=== PATIENT | female | born 1945 | race Asian ===

== ENCOUNTER 2020-10-13 15:45 | Emergency (ER) | payer OTHER ==
[~2020-10-13] VITALS: Ht 160 cm; Wt 47.6 kg
[2020-10-13 15:56] VITALS: Ht 160 cm; Wt 47.6 kg
[2020-10-13 20:13] LABS: UA SPECIFIC GRAVITY 1.015 (1.005-1.035); microscopic required? YES; urine erythrocyte 3+ (NEGATIVE)
[2020-10-13 20:31] LABS: BASOPHIL % 0.3 % (0-2); PLATELET COUNT 161 x10^3mcL (130-400); RED CELL DISTRIBUTION WIDTH 12.8 % (11.5-14.5)
[2020-10-13 20:45] LABS: CALCIUM 8.2 mg/dL (8.5-10.1); CARBON DIOXIDE 24.2 mmol/L (21-32); CHLORIDE SERUM 98 mmol/L (98-107); GLUCOSE SERUM 179 mg/dL (74-106); POTASSIUM SERUM 3.9 mmol/L (3.5-5.1); SODIUM SERUM 130 mmol/L (136-145)
[2020-10-13 20:50] LABS: ALKALINE PHOSPHATASE 122 U/L (46-116); ALT/SGPT 41 U/L (14-59); AST/SGOT 31 U/L (15-37); BILIRUBIN TOTAL 0.6 mg/dL (0.20-1.00); LIPASE 58 IU/L (73-393); TOTAL PROTEIN, SERUM 6.5 g/dL (6.4-8.2)
[2020-10-13 20:55] LABS: ALBUMIN 2.6 g/dL (3.4-5.0)
[2020-10-14 00:22] VITALS: BP 142/74
== END 2020-10-14 00:22 | disposition home or self-care (01) ==
LOC: ED 15:45
PROVIDERS: Emergency Medicine
DX: N12 Tubulo-interstitial nephritis, not specified as acute or chronic (principal); I10 Essential (primary) hypertension; E11.9 Type 2 diabetes mellitus without complications; E78.5 Hyperlipidemia, unspecified; Z90.89 Acquired absence of other organs
CPT/HCPCS: J0696; J7030